=== PATIENT | male | born 1960 | race Caucasian/White ===

== ENCOUNTER 2018-07-06 12:47 | Day surgery (SDC) | payer OTHER, BC ==
[2018-07-06] MEDS ORDERED: LIDOCAINE 4% SOLUTION 50 ML BTL (15:22)
[2018-07-06] MEDS ORDERED: FENTAnyl 50 MCG/ML VIAL (15:52)
[2018-07-06] MEDS ORDERED: MIDAZOLAM 1 MG/ML 2 ML INJ ×2 (15:52→16:15)
== END 2018-07-06 16:50 | disposition home or self-care (01) ==
LOC: GIL 12:47
DX: Z12.11 Encounter for screening for malignant neoplasm of colon (principal); K57.30 Diverticulosis of large intestine without perforation or abscess without bleeding; K29.00 Acute gastritis without bleeding
CPT/HCPCS: 43239; 88305